=== PATIENT | female | born 1975 | race Caucasian/White ===

== ENCOUNTER 2023-11-12 08:04 | Outpatient (CLI) | payer OTHER ==
[~2023-11-12 08:04] MED LIST: CATAFLAM50 MG
[2023-11-12 09:18] LABS: PH,URINE 7.5 (5.0-8.0); URINE APPEARANCE Cloudy; URINE BILIRRUBIN Negative (NEGATIVE); URINE BLOOD Negative; URINE COLOR Yellow; URINE GLUCOSE Negative (NEGATIVE); URINE LEUKOCYTE Negative; URINE NITRATE Negative; URINE PROTEIN Negative (NEGATIVE); URINE UROBILINOGEN 0.2 E.U./dl
[2023-11-12 09:19] LABS: URINE BACTERIA 54.1 uL (0.0-1933); URINE EPITHELIAL CELLS 3.2 uL (0.0-38.8); URINE WBC 3.7 uL (0.0-23.2)
[2023-11-12 09:20] LABS: HEMATOCRIT 38.1 % (36.0-45.00); HEMOGLOBIN 12.8 g/dL (12.0-15.00); MEAN CELL VOLUME 88.1 fL (80.00-100.00); MEAN CORPUSCULAR HEMOGLOBIN 29.6 pg (27.00-32.0); MEAN CORPUSCULAR HGB CONC 33.6 g/dl (32.0-36.0); PLATELET COUNT 294 K/uL (150-450); RED BLOOD COUNT 4.32 M/uL (4.00-6.00); RED CELL DISTRIBUTION WIDTH 13.9 % (11.5-14.5)
[2023-11-12 09:56] LABS: ALBUMIN 3.6 gm/dL (3.4-5.0); BILIRUBIN TOTAL 0.51 mg/dL (0.3-1.2); CALCIUM 8.4 mg/dL (8.5-10.1); CHOL HDL RATIO 3.4 (0-5.0); CREATININE SERUM 0.53 mg/dL (0.55-1.02); GFR 122.1; GLOBULINA 3.6 G/DL (2.4-3.5); POTASSIUM 4.05 mEq/L (3.5-5.1); TOTAL PROTEIN 7.2 gm/dL (6.4-8.2); TSH 1.24 uIU/mL (0.358-3.74)
[2023-11-13 08:07] LABS: HSV I IGG TYPE SPECIFIC < 0.91 index (0.00-0.90)
[2023-11-13 10:11] LABS: HEPATITIS C VIRUS ANTIBODY Non Reactive (Non Reactive)
== END 2023-11-12 08:06 | disposition home or self-care (01) ==
LOC: LAB 08:04
PROVIDERS: ATTEND Obstetrics & Gynecology
DX: E03.9 Hypothyroidism, unspecified (principal); E55.9 Vitamin D deficiency, unspecified; I10 Essential (primary) hypertension; N95.1 Menopausal and female climacteric states; E78.9 Disorder of lipoprotein metabolism, unspecified; L68.0 Hirsutism; E11.9 Type 2 diabetes mellitus without complications; D50.0 Iron deficiency anemia secondary to blood loss (chronic); N30.00 Acute cystitis without hematuria; N39.0 Urinary tract infection, site not specified; R68.82 Decreased libido; D35.2 Benign neoplasm of pituitary gland; A64 Unspecified sexually transmitted disease; Z11.4 Encounter for screening for human immunodeficiency virus [HIV]; Z11.3 Encounter for screening for infections with a predominantly sexual mode of transmission; B00.9 Herpesviral infection, unspecified; K76.9 Liver disease, unspecified

== ENCOUNTER 2023-11-13 15:19 | Outpatient (CLI) | payer OTHER ==
[2023-11-13 16:11] LABS: ob NEGATIVE (NEGATIVE)
== END 2023-11-13 15:22 | disposition home or self-care (01) ==
LOC: LAB 15:19
PROVIDERS: ATTEND Obstetrics & Gynecology
DX: E03.9 Hypothyroidism, unspecified (principal); E55.9 Vitamin D deficiency, unspecified; I10 Essential (primary) hypertension; N95.1 Menopausal and female climacteric states; E78.9 Disorder of lipoprotein metabolism, unspecified; L68.0 Hirsutism; L70.9 Acne, unspecified; E11.9 Type 2 diabetes mellitus without complications; D50.0 Iron deficiency anemia secondary to blood loss (chronic); N30.00 Acute cystitis without hematuria; N39.0 Urinary tract infection, site not specified; R68.82 Decreased libido; D35.2 Benign neoplasm of pituitary gland

== ENCOUNTER 2024-08-17 09:08 | Outpatient (CLI) | payer OTHER | END 2024-08-17 09:14 | disposition home or self-care (01) | LOC: MAMO-SONO 09:08 | PROVIDERS: ATTEND Obstetrics & Gynecology | DX: N64.4 Mastodynia (principal); N64.51 Induration of breast; R92.0 Mammographic microcalcification found on diagnostic imaging of breast; Z12.31 Encounter for screening mammogram for malignant neoplasm of breast; N63.0 Unspecified lump in unspecified breast ==

== ENCOUNTER 2024-10-16 18:35 | Emergency (ER) | payer OTHER ==
[~2024-10-16] VITALS: Ht 165.1 cm; Wt 53.5 kg
== END 2024-10-16 20:36 | disposition home or self-care (01) ==
LOC: ER 18:37
DX: M79.605 Pain in left leg (principal); Z88.8 Allergy status to other drugs, medicaments and biological substances

== ENCOUNTER 2024-10-17 07:22 | Emergency (ER) | payer OTHER ==
[~2024-10-17] VITALS: Ht 165.1 cm; Wt 53.5 kg
[2024-10-17 07:48] VITALS: BP 107/70; O2SAT 99
== END 2024-10-17 11:18 | disposition home or self-care (01) ==
LOC: ER 07:25
DX: M79.605 Pain in left leg (principal); Z88.1 Allergy status to other antibiotic agents